=== PATIENT | female | born 2000 | race Caucasian/White ===

== ENCOUNTER 2022-01-12 00:54 | Emergency (ER) | payer MEDICAID ==
[~2022-01-12] VITALS: Ht 162.6 cm; Wt 56.8 kg
[2022-01-12 00:57] VITALS: BP 128/84
[2022-01-12] MEDS ORDERED: PERTUSS(ACELL),DIPH,TET VAC/PF 0.5 ML SYRINGE IM. ONE (02:00)
[2022-01-12] MEDS ORDERED: SODIUM CHLORIDE 0.9% 250 ML IRRIG SOLUTION BOTTLE IRRIG ONE (02:00)
== END 2022-01-12 02:49 | disposition home or self-care (01) ==
LOC: EMS 00:58
DX: S01.01XA Laceration without foreign body of scalp, initial encounter (principal); X58.XXXA Exposure to other specified factors, initial encounter; Y93.89 Activity, other specified; Y92.89 Other specified places as the place of occurrence of the external cause; Y99.0 Civilian activity done for income or pay
CPT/HCPCS: 12001; 90471; 90715; 99283